=== PATIENT | female | born 2000 ===

== ENCOUNTER 2021-07-17 14:19 | Emergency (ER) | payer OTHER ==
[2021-07-17 15:45] LABS: #Basophils 0.1 thou/uL (0.0-0.2); #Eosinphils 0.1 thou/uL (0.0-0.7); #Lymphocytes 2.1 thou/uL (1.20-3.40); #Monocytes 0.7 thou/uL (0.11-0.59); #Neutrophils 4.6 thou/uL (1.40-6.50); %Eosinophils 1.2 % (0.0-10.0); %Lymphocytes 28.2 % (28.0-48.0); %Neutrophils 60.6 % (31.0-61.0); Hemoglobin 14.5 g/dL (12.0-16.0); Mean Corpuscular HGB CONC 33.3 g/dL (32.0-36.0); Mean Corpuscular Hemoglobin 31.2 pg (25.0-35.0); Mean Corpuscular Volume 93.7 fL (78.0-98.0); Mean Platelet Volume 7.4 fL (7.4-10.4); Platelet Count 273 thou/uL (130-400); RBC Distribution Width 11.3 % (11.5-14.5); Red Blood Cell (RBC) Count 4.65 mill/uL (4.00-5.20); White Blood Cell (WBC) Count 7.6 thou/uL (4.8-10.8)
[2021-07-17] MEDS ORDERED: Lidocaine Viscous Sol 2% 15 ml UD Cup ONE (15:58)
[2021-07-17] MEDS ORDERED: Mag-Al 1200 mg/1200 mg/30 ML UDCUP ONE (15:58)
[2021-07-17 16:09] LABS: ALT (SGPT) 24 U/L (8-55); AST (SGOT) 24 U/L (5-30); Albumin 4.8 g/dL (3.5-5.0); Alkaline Phosphatase 42 U/L (40-100); Anion Gap 14 mmol/L (10-20); BUN (Urea Nitrogen) 14 mg/dL (8.4-21.0); Bilirubin, Total 0.3 mg/dL (0.2-1.2); Calc. Creatinine Clearance 0 mL/min (70-130); Carbon Dioxide 24 mmol/L (22-29); Chloride 105 mmol/L (98-107); Globulin 3.3 g/dL (2.4-3.5); Glucose 89 mg/dL (70-105); Lipase 18 U/L (8-78); Protein, Total 8.1 g/dL (6.0-8.3); Sodium 139 mmol/L (136-145)
[2021-07-17 16:48] LABS: Bilirubin Negative (Negative); Blood, Urine Negative (Negative); Glucose, Urine (Dipstick) Normal (Negative); Ketone, Urine Negative (Negative); Leukocyte Negative Leu/uL (Negative); Nitrite Negative (Negative); Protein, Urine (Dipstick) Negative (Neg-Trace); Specific Gravity, Urine 1.022 (1.002-1.036); Urobilinogen Normal mg/dL (Less than 2); pH, Urine 7.5 (5.0-9.0)
[2021-07-17 16:49] LABS: Clarity Hazy (Clear)
[2021-07-17 16:50] LABS: Pregnancy Test - Urine (BHCG) Negative (Negative); Pregu Control Background? CLEAR/WHITE (CLR/WHITE); Pregu Control Bar Appear? YES (CONTROL BAR); Specific Gravity 1.022 (1.002-1.036)
== END 2021-07-17 18:25 | disposition home or self-care (01) ==
LOC: ERS 14:19
DX: R10.12 Left upper quadrant pain (principal); F17.290 Nicotine dependence, other tobacco product, uncomplicated
CPT/HCPCS: 36415; 80053; 81003; 81025; 83690; 85025; 93005